=== PATIENT | male | born 1955 | race Caucasian/White ===

== ENCOUNTER 2016-04-27 12:33 | Emergency (ER) | payer OTHER ==
[~2016-04-27] VITALS: Ht 193 cm; Wt 102.3 kg
[~2016-04-27 12:33] MED LIST: ALBU8.5H2 INHALATION; AMOX-366 PO; ASPI-973 PO; CHLO120L TP; DIL4T PO; DULO60CA61 PO; FINA5TAB9 PO; INSLIS SUBQ; INSU100V7 SUBQ; KLO2T PO; METF1000 PO; METO25TA6 PO; PREG50CA PO; SERT100T9 PO; SIMV40TA5 PO; TAMS0.4C98 PO
[2016-04-27 12:36] VITALS: BP 142/87; PULSE 111; RESP 16; O2SAT 97
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
[2016-04-27] MEDS ORDERED: DOXY100C43 PO (13:18)
[2016-04-27] MEDS ORDERED: MUPI22OI2 TOP (13:18)
[2016-04-27] MEDS ORDERED: DIPH25CA6 PO (13:19)
== END 2016-04-27 13:30 | disposition home or self-care (01) ==
LOC: SED 12:33
DX: L08.89 Other specified local infections of the skin and subcutaneous tissue (principal); F13.230 Sedative, hypnotic or anxiolytic dependence with withdrawal, uncomplicated; L29.8 Other pruritus; E11.9 Type 2 diabetes mellitus without complications; I10 Essential (primary) hypertension; E78.5 Hyperlipidemia, unspecified; J44.9 Chronic obstructive pulmonary disease, unspecified; F17.210 Nicotine dependence, cigarettes, uncomplicated; Z79.82 Long term (current) use of aspirin; Z79.84 Long term (current) use of oral hypoglycemic drugs; Z88.1 Allergy status to other antibiotic agents; Z88.5 Allergy status to narcotic agent; Z88.8 Allergy status to other drugs, medicaments and biological substances; Z89.511 Acquired absence of right leg below knee; Z87.828 Personal history of other (healed) physical injury and trauma

== ENCOUNTER 2016-05-27 11:31 | Emergency (ER) | payer OTHER ==
[~2016-05-27 11:31] MED LIST changes: +DIPH25CA6 PO; +DOXY100C43 PO; +MUPI22OI2 TOP
[2016-05-27 11:45] VITALS: BP 130/76; PULSE 82; RESP 16; O2SAT 92
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
[2016-05-27] MEDS ORDERED: HYDROcodone-APAP 5-325 mg Tablet PO ONE (12:40)
--- NOTE | 2016-05-27 14:07 | DRSVH ---
PROCEDURE: X-RAY RIGHT HIP COMPLETE, MINIMUM TWO VIEWS ([id number]) INDICATIONS: trauma TECHNIQUE: 2 views of the hip were acquired. COMPARISON: [facility], CR, XR PELVIS W LATERAL HIP LT, 03/25/2015, 20:01. FINDINGS: Bones: Subtle cortical irregularity is present near the lesser trochanter raising the suspicion for a poorly characterized, minimally displaced fracture. No other fracture or dislocation. Soft tissues: No suspicious soft tissue calcifications or masses. IMPRESSION: Questionable intertrochanteric fracture. CT of the hip recommended if there is high clini antonio suspicion for occult fracture. Dictated by: Yumiko Escalona M.D. on 05/27/2016 at 14:03 Approved by: Yumiko Escalona M.D. on 05/27/2016 at 14:06
--- NOTE | 2016-05-27 14:52 | DRSVH ---
PROCEDURE: CT HIP RIGHT W/O CONTRAST ([id number]) INDICATIONS: possible fracture TECHNIQUE: Noncontrast 3 mm axial sections acquired through the bony pelvis. Additional 3 mm axial sections acq uired through the symptomatic hip joint, with coronal and sagittal reformats. COMPARISON: [facility], CT, PELVIS W/O CONTRAST, 06/16/2009, 14:11. [facility], L-SPINE W/O CONTRAST, 04/24/2014, 23:13. [facility], CR, XR PELVIS W LATERAL HIP RT, 09/18/2015, 8:44. [facility], CR, XR HIP 2VW RT, 05/27/2016, 13:27. FINDINGS: Image quality: Excellent. Bones: There is a minimally displaced fracture through the right acetabulum. No other fracture or dis location. The femoral head remains articulated with the acetabulum. Additionally, there is a peripher ally sclerotic, centrally lucent 3.9 x 4.4 cm lytic lesion within the acetabulum. The fracture transe cts this expansile lesion. This lesion is similar in size and appearance to the study dated 06/16/09. Soft tissues: No intramuscular hematoma. The bladder is thin walled. Visualized portions of the bowel are unremarkable. Vessels demonstrate normal course and caliber with mild arterial atherosclerosis. IMPRESSION: 1. Minimally displaced left acetabular fracture which transects an expansile bony lesion. Given the c hronic appearance of this lucent lesion (unchanged since 2009), this likely represents a benign proce ss such as fibrous dysplasia or aneurysmal bone cyst. These findings were discussed with Dr. Jaramillo at 2:49 PM on 05/27/16. Dictated by: Yumiko Escalona M.D. on 05/27/2016 at 14:42 Approved by: Yumiko Escalona M.D. on 05/27/2016 at 14:50
[2016-05-27] MEDS ORDERED: 0.9% Sodium Chloride 1,000 ML IV ONE (14:53)
[2016-05-27] MEDS ORDERED: Ondansetron 2 mg/mL 2 mL Inj IVPUSH PRN (14:55)
[2016-05-27] MEDS ORDERED: HYDROmorphone 0.5 mg/0.5 mL iSecure Syringe IVPUSH PRN (14:55)
[2016-05-27 16:02] VITALS: BP 130/76; PULSE 82; RESP 16; O2SAT 92
[2016-05-27 16:03] LABS: BASOPHILS % (AUTO) 0.3 % (0-3); EOSINOPHILS % (AUTO) 2.4 % (0-5); MONOCYTES % (AUTO) 8.7 % (4-12); Mean Corpuscular Hemoglobin 27.2 pg (27.0-35.0); Mean Corpuscular Volume 81.6 fL (81-100); NEUTROPHILS % (AUTO) 69.8 % (40-74); Platelet Count 211 bil/L (150-400)
== END 2016-05-27 16:05 | disposition short-term general hospital (02) ==
LOC: SED 11:31 → EDBD 11:31 → SED 16:05
DX: S32.401A Unspecified fracture of right acetabulum, initial encounter for closed fracture (principal); V00.818A Other accident with wheelchair (powered), initial encounter; Y92.9 Unspecified place or not applicable; Y93.89 Activity, other specified; Y99.8 Other external cause status; E11.40 Type 2 diabetes mellitus with diabetic neuropathy, unspecified; J44.9 Chronic obstructive pulmonary disease, unspecified; E78.5 Hyperlipidemia, unspecified; I10 Essential (primary) hypertension; F17.200 Nicotine dependence, unspecified, uncomplicated; Z89.511 Acquired absence of right leg below knee; Z99.3 Dependence on wheelchair; Z79.82 Long term (current) use of aspirin; Z79.84 Long term (current) use of oral hypoglycemic drugs; Z79.4 Long term (current) use of insulin; Z88.6 Allergy status to analgesic agent; Z88.8 Allergy status to other drugs, medicaments and biological substances; Z88.1 Allergy status to other antibiotic agents; Z88.5 Allergy status to narcotic agent
CPT/HCPCS: 36415; 73502; 73700; 80053; 85025; 96361; 96374; 96375; 99285; J1170; J2405; J7030

== ENCOUNTER 2016-06-30 02:35 | Emergency (ER) | payer OTHER ==
[~2016-06-30] VITALS: Ht 193 cm; Wt 97.7 kg
[2016-06-30 02:37] VITALS: BP 128/77; PULSE 81; RESP 16; O2SAT 97
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
[2016-06-30] MEDS ORDERED: HYDROmorphone 1 mg/mL Inj IM ONE (02:55)
[2016-06-30] MEDS ORDERED: HYDR4TAB PO (06:01)
[2016-06-30 06:37] VITALS: BP 127/71; PULSE 93; RESP 18; O2SAT 99
--- NOTE | 2016-06-30 09:40 | DRSVH ---
PROCEDURE: X-RAY PELVIS W/LAT HIP (RT) ([id number]) INDICATIONS: acetab fx 1 month ago, fell again on it TECHNIQUE: AP pelvis with lateral view(s) of the right hip(s). COMPARISON: [facility], CT, CT HIP RT WO CON, 05/27/2016, 14:20. FINDINGS: Bones: Minimally displaced fracture involving the right acetabulum seen on CT scan not visualized rad iographically. Bony alignment is stable. Peripherally sclerotic, central lucent lesion within the a cetabulum is unchanged. Soft tissues: The visualized bowel gas pattern is normal. No suspicious soft tissue calcifications. IMPRESSION: Right acetabular fracture seen on prior CT scan not well seen by plain film. No definite new acute bony abnormality seen. Dictated by: Thai Rueda [facility] Interpreted: Lidia Bahena MD on 06/30/2016 at 9:38 Transcribed by: KISHOR on 06/30/2016 at 9:40 Approved by: Lidia Bahena MD, PhD on 06/30/2016 at 17:01
== END 2016-06-30 06:38 | disposition home or self-care (01) ==
LOC: SED 02:35
DX: S32.401D Unspecified fracture of right acetabulum, subsequent encounter for fracture with routine healing (principal); W18.39XD Other fall on same level, subsequent encounter; Y93.89 Activity, other specified; Y92.009 Unspecified place in unspecified non-institutional (private) residence as the place of occurrence of the external cause; Y99.8 Other external cause status; J44.9 Chronic obstructive pulmonary disease, unspecified; I10 Essential (primary) hypertension; E11.40 Type 2 diabetes mellitus with diabetic neuropathy, unspecified; E78.5 Hyperlipidemia, unspecified; Z79.82 Long term (current) use of aspirin; Z79.4 Long term (current) use of insulin; Z79.84 Long term (current) use of oral hypoglycemic drugs; Z88.1 Allergy status to other antibiotic agents; Z88.5 Allergy status to narcotic agent; Z88.8 Allergy status to other drugs, medicaments and biological substances
CPT/HCPCS: 73501; 96372; 99284; J1170

== ENCOUNTER 2016-08-29 14:50 | Emergency (ER) | payer OTHER ==
[~2016-08-29] VITALS: Ht 193 cm; Wt 97.7 kg
[~2016-08-29 14:50] MED LIST changes: +HYDR4TAB PO
[2016-08-29 15:13] VITALS: BP 121/75; PULSE 93; RESP 15; O2SAT 96
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
[2016-08-29] MEDS ORDERED: AZIT250T4 PO (19:05)
[2016-08-29 19:46] VITALS: BP 128/74; PULSE 88; RESP 18; O2SAT 98
== END 2016-08-29 19:47 | disposition home or self-care (01) ==
LOC: SED 14:50
DX: J32.9 Chronic sinusitis, unspecified (principal); M25.551 Pain in right hip; W17.89XA Other fall from one level to another, initial encounter; Y92.9 Unspecified place or not applicable; Y93.89 Activity, other specified; Y99.8 Other external cause status; F11.20 Opioid dependence, uncomplicated; J44.9 Chronic obstructive pulmonary disease, unspecified; E11.40 Type 2 diabetes mellitus with diabetic neuropathy, unspecified; E78.5 Hyperlipidemia, unspecified; I10 Essential (primary) hypertension; F41.9 Anxiety disorder, unspecified; F17.200 Nicotine dependence, unspecified, uncomplicated; Z87.828 Personal history of other (healed) physical injury and trauma; Z86.19 Personal history of other infectious and parasitic diseases; Z89.511 Acquired absence of right leg below knee; Z79.4 Long term (current) use of insulin; Z79.84 Long term (current) use of oral hypoglycemic drugs; Z79.82 Long term (current) use of aspirin; Z88.6 Allergy status to analgesic agent; Z88.8 Allergy status to other drugs, medicaments and biological substances; Z88.1 Allergy status to other antibiotic agents; Z88.5 Allergy status to narcotic agent

== ENCOUNTER 2016-09-14 11:48 | Emergency (ER) | payer OTHER ==
[~2016-09-14 11:48] MED LIST changes: +AZIT250T4 PO
[2016-09-14 12:08] VITALS: BP 112/72; PULSE 84; RESP 16; O2SAT 93
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
[2016-09-14 13:33] LABS: BASOPHILS % (AUTO) 0.3 % (0-3); EOSINOPHILS % (AUTO) 1.9 % (0-5); MONOCYTES % (AUTO) 6.6 % (4-12); Mean Corpuscular Hemoglobin 28.3 pg (27.0-35.0); Mean Corpuscular Volume 85.2 fL (81-100); NEUTROPHILS % (AUTO) 65.6 % (40-74); Platelet Count 177 bil/L (150-400)
[2016-09-14 15:00] VITALS: BP 115/59
== END 2016-09-14 15:01 | disposition home or self-care (01) ==
LOC: EDBD 11:48 → SED 11:48
DX: E11.65 Type 2 diabetes mellitus with hyperglycemia (principal); J44.9 Chronic obstructive pulmonary disease, unspecified; E78.5 Hyperlipidemia, unspecified; I10 Essential (primary) hypertension; F17.200 Nicotine dependence, unspecified, uncomplicated; Z79.82 Long term (current) use of aspirin; Z79.84 Long term (current) use of oral hypoglycemic drugs; Z79.4 Long term (current) use of insulin; Z88.1 Allergy status to other antibiotic agents; Z88.5 Allergy status to narcotic agent; Z88.6 Allergy status to analgesic agent; Z88.8 Allergy status to other drugs, medicaments and biological substances

== ENCOUNTER 2016-09-15 12:25 | Emergency (ER) | payer OTHER ==
[~2016-09-15] VITALS: Ht 193 cm; Wt 86.4 kg
[2016-09-15 12:39] VITALS: BP 126/64; PULSE 77; O2SAT 95
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
--- NOTE | 2016-09-15 14:01 | DRSVH ---
PROCEDURE: CT CERVICAL SPINE WITHOUT CONTRAST ([id number]) INDICATIONS: ground-level fall, headache, cervical tenderness TECHNIQUE: Noncontrast 3 mm thick sections acquired from the skull base to the T4 level. Sagittal and coronal r eformats were then constructed. For radiation dose reduction, the following was used: automated exp osure control, adjustment of mA and/or kV according to patient size. COMPARISON: [facility], CT, CT CERVICAL SPINE WO CON, 09/20/2015, 13:59. FINDINGS: Image quality: Excellent. Bones: No fractures or dislocations. There is mild multilevel disc space narrowing. Mild degenerat ion is noted at the atlantoaxial joint. There is fluid opacification of the right mastoid air cells. Postsurgical changes are partially visualized in the facial bones. Visualized superior ribs are in tact. Soft tissues: Prevertebral soft tissues are normal in thickness. No paravertebral hematomas. No ap ical pneumothoraces. IMPRESSION: 1. No acute fracture or subluxation. 2. Fluid opacification of the right mastoid air cells suggesting mastoiditis. Dictated by: Kennedy Benitez M.D. on 09/15/2016 at 12:57 Approved by: Kennedy Benitez M.D. on 09/15/2016 at 13:00
--- NOTE | 2016-09-15 16:04 | NUR ---
ED PARK MAINTENANCE TECHNICIAN Note D/A: Pt medically cleared and discharged. PARK MAINTENANCE TECHNICIAN requested to arrange transportation home for Pt. P: PARK MAINTENANCE TECHNICIAN completed and faxed the [employer] Transportation request form. PARK MAINTENANCE TECHNICIAN spoke with Raul at [employer] and transportation via cab was arranged. PARK MAINTENANCE TECHNICIAN updated Pt's RN regarding the above. ZHENG Valenzuela, AAC
== END 2016-09-15 15:14 | disposition home or self-care (01) ==
LOC: EDBD 12:25 → SED 12:25
DX: S09.8XXA Other specified injuries of head, initial encounter (principal); R51 Headache; M54.2 Cervicalgia; M54.5 Low back pain; G89.29 Other chronic pain; V00.811A Fall from moving wheelchair (powered), initial encounter; Y93.89 Activity, other specified; Y92.008 Other place in unspecified non-institutional (private) residence as the place of occurrence of the external cause; Y99.8 Other external cause status; I10 Essential (primary) hypertension; E11.40 Type 2 diabetes mellitus with diabetic neuropathy, unspecified; E78.5 Hyperlipidemia, unspecified; F17.200 Nicotine dependence, unspecified, uncomplicated; Z79.899 Other long term (current) drug therapy; Z79.84 Long term (current) use of oral hypoglycemic drugs; Z79.82 Long term (current) use of aspirin; Z79.4 Long term (current) use of insulin; Z88.1 Allergy status to other antibiotic agents; Z88.5 Allergy status to narcotic agent; Z88.6 Allergy status to analgesic agent; Z88.8 Allergy status to other drugs, medicaments and biological substances

== ENCOUNTER 2016-09-29 02:46 | Emergency (ER) | payer OTHER ==
[~2016-09-29] VITALS: Ht 193 cm; Wt 81.8 kg
[2016-09-29 02:47] VITALS: BP 150/84; PULSE 64; RESP 18; O2SAT 95
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
[2016-09-29] MEDS ORDERED: oxyCODONE-Acetamin 5-325 mg Tablet PO ONE (02:55)
[2016-09-29 03:19] LABS: BASOPHILS % (AUTO) 0.4 % (0-3); EOSINOPHILS % (AUTO) 2.1 % (0-5); MONOCYTES % (AUTO) 5.3 % (4-12); Mean Corpuscular Hemoglobin 28.5 pg (27.0-35.0); NEUTROPHILS % (AUTO) 57.8 % (40-74); Platelet Count 177 bil/L (150-400)
[2016-09-29 06:10] VITALS: BP 147/80; PULSE 68; RESP 18; O2SAT 97
[2016-09-29] MEDS ORDERED: oxyCODONE-Acetamin 10-325 mg Tablet PO PRN (07:10)
[2016-09-29 10:00] VITALS: BP 116/61; PULSE 58; RESP 16; O2SAT 95
--- NOTE | 2016-09-29 16:53 | CONS ---
[address] [address] CONSULTATION REPORT PATIENT: BENITO ARITA : 1955 MR#: [id number] ADMIT: 09/29/2016 JOB ID: [id number] DATE OF SERVICE: 09/29/2016 IDENTIFICATION OF PATIENT: The patient is a 61-year-old male well known to the emergency department as well as a mental health unit with noted prior history of multiple interventions for treatment of depression, PTSD and chronic substance use. The patient reportedly was seen at the request of attending physician, Dr. Clayton due to concerns of suicidal ideation. CHIEF COMPLAINT: "I would be willing to go back to CD treatment, I know that I have been misusing my medicines again." HISTORY OF PRESENT ILLNESS: As stated above, the patient did meet with myself and openly identified that he would be willing to go back to a chemical dependency treatment. He reportedly has been followed in the community and recently there is notation of misuse of substances with interactions through [facility] emergency department. The patient reportedly had gone through a month's supply of Klonopin within two weeks and has a long-term history of substance use/abuse. The patient identified that he previously had gone through [facility] in the but has not returned other than attending local AA and NA group activities. He indicates that he currently attends four to five meetings per week. He reports that he does abuse his Klonopin and pain management. He reportedly is on doses of oxycodone 10/325 q. 6 hours, Klonopin 1 mg t.i.d. per report. He indicates that he has not drank alcohol since 1977. I have reviewed documentation with open identification that the patient has been on placements of Suboxone replacement therapy in the past. As well, he indicates that he was addicted to several substances and notes that he has fallen back into that pattern. He initially was quite somnolent, but was willing to interact with myself. He later requested to meet with myself after interactions with the social worker delinquency prevention. I discussed with the social worker delinquency prevention, recommendations for return to a chemical dependency treatment and do not see that the patient is a likely candidate to benefit from a mental health unit intervention. I do see that much of his presentation is related to his drug addiction, and the need for treatment is clear and relevant. This was discussed with Dr. Clayton as well. PAST MEDICAL HISTORY: Deferred to the ED physician team. PAST PSYCHIATRIC HISTORY: Substantial for previous psychiatric admissions through the mental health unit and previous chemical dependency treatment through [facility]. There is some question of psychiatric involvement of current and some reference that the patient has been trying to actually get in to see a psychiatrist, but due to lengthy waiting list has never followed through. SOCIAL HISTORY: Currently indicates that he lives in the home of his mother who is now . He admits to the above usage of substances. He denies any alcohol usage. TRAUMA HISTORY: Not reviewed. FAMILY HISTORY: Deferred. DEVELOPMENTAL HISTORY: Deferred. MENTAL STATUS EXAM: General appearance: The patient was quite somnolent throughout but was able to answer questions accordingly. He indicates that he has not experienced suicidal ideation recently, but indicated that he often will tell people that in order to get medications. He was very clear and reliable on this account. He denied any active hallucinations, delusions. He was alert, oriented to time and place. His attention and concentration are poor. Insight and judgment are poor. IMPRESSION: [place] I1. Polysubstance use disorder with benzodiazepines, opiate addiction, by history. 2. Mood disorder, not otherwise specified with probable substance-induced presentation. 3. Rule out malingering. [place] IICluster B personality features. [place] IIIDefer to the medical team. [place] IVStressors are noted for chronic substance use history, chronic mental health issues as related to his substance use patterns. [place] VGlobal assessment of functioning current 50. RECOMMENDATIONS: 1. To discharge if the patient is unwilling to complete chemical dependency treatment referrals. I discussed initially with the social worker delinquency prevention, and the patient was agreeable to undergo a chemical dependency assessment, however, later declined. This was discussed with Dr. Clayton as well. 2. Caution is to be expressed in the future about further prescriptions. I would not support utilization of addictive medications including benzodiazepines or pain management medications. The patient is certainly at too high a risk and likely to abuse all substances. 3. Recommendation is for continuation of pursuit of mental health interventions through local community based sectors including [facility], [facility], [facility] and the [facility].
== END 2016-09-29 13:02 | disposition left against medical advice (07) ==
LOC: SED 02:46
DX: F32.0 Major depressive disorder, single episode, mild (principal); R45.851 Suicidal ideations; F19.10 Other psychoactive substance abuse, uncomplicated; I10 Essential (primary) hypertension; E11.43 Type 2 diabetes mellitus with diabetic autonomic (poly)neuropathy; E03.9 Hypothyroidism, unspecified; F17.200 Nicotine dependence, unspecified, uncomplicated; F43.10 Post-traumatic stress disorder, unspecified; Z88.1 Allergy status to other antibiotic agents; Z88.5 Allergy status to narcotic agent; Z88.6 Allergy status to analgesic agent; Z79.84 Long term (current) use of oral hypoglycemic drugs; Z79.82 Long term (current) use of aspirin; Z79.899 Other long term (current) drug therapy

== ENCOUNTER 2016-11-11 10:18 | Inpatient (IN) | payer MEDICAID, OTHER ==
[~2016-11-11] VITALS: Ht 190.5 cm; Wt 81.8 kg
[2016-11-11 10:39] VITALS: BP 108/59; PULSE 64; RESP 20; O2SAT 94
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
[2016-11-11 11:45] VITALS: BP 99/53; PULSE 60; RESP 24; O2SAT 92
[2016-11-11 12:52] VITALS: BP 106/57; PULSE 56; RESP 24; O2SAT 95
[2016-11-11 18:13] VITALS: BP 115/70; PULSE 54; RESP 20
[2016-11-11 19:38] LABS: BASOPHILS % (AUTO) 0.2 % (0-3); EOSINOPHILS % (AUTO) 1.2 % (0-5); MONOCYTES % (AUTO) 5.7 % (4-12); Mean Corpuscular Volume 85.8 fL (81-100); NEUTROPHILS % (AUTO) 72.6 % (40-74); Platelet Count 202 bil/L (150-400)
[2016-11-11] MEDS ORDERED: Insulin Human REGular-Omnicell 100 Unit/mL SUBQ ONE (20:45)
[2016-11-11] MEDS ORDERED: 0.9% Sodium Chloride 1,000 ML IV ONE (20:45)
[2016-11-11] MEDS ORDERED: oxyCODONE-Acetamin 5-325 mg Tablet PO ONE (20:45)
[2016-11-12] MEDS ORDERED: oxyCODONE-Acetamin 10-325 mg Tablet PO ONE ×2 (02:25→09:10)
[2016-11-12 05:46] VITALS: BP 136/79; PULSE 78; RESP 16; O2SAT 95
[2016-11-12] MEDS ORDERED: Insulin Human REGular-Omnicell 100 Unit/mL SUBQ ONE ×2 (07:15→11:50)
[2016-11-12] MEDS ORDERED: (U-500) Insulin Regluar, Human 500 Unit/mL Syringe SUBQ STA ×2 (08:50→11:23)
[2016-11-12 12:29] VITALS: BP 117/72; PULSE 71; RESP 21; O2SAT 96
[2016-11-12] MEDS ORDERED: KLO1T PO (18:05)
[2016-11-12] MEDS ORDERED: OXYC-407 PO (18:06)
[2016-11-12] MEDS ORDERED: TRAZ-115 PO (18:07)
[2016-11-12] MEDS ORDERED: Glucose 40% Oral Gel 15 Gm Tube PO PRN (18:20)
[2016-11-12] MEDS: DULoxetine 30 mg DR Capsule PO SCH (18:37)
[2016-11-12 18:39] VITALS: BP 112/68; PULSE 56; RESP 18; O2SAT 94
[2016-11-12] MEDS ORDERED: oxyCODONE-Acetamin 5-325 mg Tablet PO ONE (19:15)
[2016-11-12] MEDS: Insulin Human REGular-Omnicell 100 Unit/mL SUBQ SCH (19:21)
[2016-11-13 05:00] VITALS: BP 109/60; PULSE 82; RESP 16; O2SAT 97
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
[2016-11-13] MEDS: oxyCODONE-Acetamin 5-325 mg Tablet PO SCH ×3 (06:55→22:26)
[2016-11-13] MEDS: DULoxetine 30 mg DR Capsule PO SCH (08:30)
[2016-11-13] MEDS: Insulin Human REGular-Omnicell 100 Unit/mL SUBQ SCH (09:47)
[2016-11-13] MEDS ORDERED: Insulin LISPRO 300 Unit/3 mL Inj SUBQ ONE (10:15)
[2016-11-13] MEDS: Insulin GLARgine 100 Unit/mL Syringe SUBQ SCH ×2 (10:51→22:26)
[2016-11-13 17:45] VITALS: BP 115/63; PULSE 77; RESP 18; O2SAT 94
[2016-11-13 22:30] VITALS: BP 120/74; PULSE 71; RESP 14; O2SAT 94
--- NOTE | 2016-11-13 22:44 | PCM.PNPSY ---
Subjective Date of Service Nov 13, 2016 Subjective Patient frustrated with being in the emergency department. Patient denies intent to harm self or others and states would return home. Patient also aware of reported restraining order and later acknowledges restraining order and is unsure what what he would do. Patient called mother who reportedly hung up on him. Patient attempting to get larger doses of opiates and benzos but he himself acknowledges that he did not notice much difference between low and high dose benzodiazepines. Sleep: decreased due to noise Appetite: good Suicidal and homicidal ideation: denies Auditory hallucinations: denies Visual hallucinations: denies Other Psychotic Symptoms: NA Anxiety/Depression: increased due to concerns about being abandoned by family. Current Medications Current Medications Clonazepam 1 mg DAILY PO Last administered on 11/13/16 09:13; Admin Dose 1 MG; Start 11/13/16 at 08:30; Stop 11/13/16 at 10:59; Status DC Clonazepam 1 mg QID PRN PO Last administered on 11/13/16 00:32; Admin Dose 1 MG; Start 11/12/16 at 18:00; Stop 11/13/16 at 10:59; Status DC Clonazepam 1 mg TID PO Last administered on 11/13/16 22:26; Admin Dose 1 MG; Start 11/13/16 at 14:30 Clonazepam 2 mg ONCE ONCE PO Last administered on 11/12/16 02:35; Admin Dose 2 MG; Start 11/12/16 at 02:25; Stop 11/12/16 at 02:26; Status DC Clonazepam 2 mg ONCE ONCE PO Last administered on 11/12/16 07:25; Admin Dose 2 MG; Start 11/12/16 at 07:10; Stop 11/12/16 at 07:11; Status DC Clonazepam 2 mg ONCE ONCE PO Last administered on 11/12/16 14:12; Admin Dose 2 MG; Start 11/12/16 at 13:55; Stop 11/13/16 at 10:59; Status DC Duloxetine HCl 30 mg DAILY PO Last administered on 11/13/16 08:30; Admin Dose 30 MG; Start 11/12/16 at 17:58 Insulin Glargine 95 unit BID SUBQ Last administered on 11/13/16 22:26; Admin Dose 95 UNIT; Start 11/13/16 at 10:15 Insulin Human Lispro 30 unit ONCE ONCE SUBQ Last administered on 11/13/16 11: 00; Admin Dose 30 UNIT; Start 11/13/16 at 10:15; Stop 11/13/16 at 10:16; Status DC Insulin Human Regular 1-8 UNITS ACHS SUBQ Last administered on 11/12/16 19:21; Admin Dose 8 UNIT; Start 11/12/16 at 19:19 Insulin Human Regular 10 unit ONCE ONCE SUBQ Last administered on 11/12/16 07: 25; Admin Dose 10 UNIT; Start 11/12/16 at 07:15; Stop 11/12/16 at 07:16; Status DC Insulin Human Regular 10 unit ONCE ONCE SUBQ Last administered on 11/12/16 11: 51; Admin Dose 10 UNIT; Start 11/12/16 at 11:50; Stop 11/12/16 at 11:51; Status DC Insulin Human Regular 10 unit ONCE STAT SUBQ Last administered on 11/12/16 09: 10; Admin Dose 10 UNIT; Start 11/12/16 at 08:50; Stop 11/12/16 at 08:51; Status DC Metformin HCl 1,000 mg BIDWM PO Last administered on 11/13/16 08:00; Admin Dose 1,000 MG; Start 11/12/16 at 18:11 Nicotine 1 patch ONCE ONCE TOPICAL Last administered on 11/12/16 05:57; Admin Dose 1 PATCH; Start 11/12/16 at 05:50; Stop 11/12/16 at 05:52; Status DC Nicotine 1 patch ONCE ONCE TOPICAL Last administered on 11/13/16 11:05; Admin Dose 1 PATCH; Start 11/13/16 at 10:45; Stop 11/13/16 at 10:46; Status DC Oxycodone/ Acetaminophen 1 tab ONCE ONCE PO Last administered on 11/12/16 02: 31; Admin Dose 1 TAB; Start 11/12/16 at 02:25; Stop 11/12/16 at 02:26; Status DC Oxycodone/ Acetaminophen 1 tab ONCE ONCE PO Last administered on 11/12/16 09: 15; Admin Dose 1 TAB; Start 11/12/16 at 09:10; Stop 11/12/16 at 09:11; Status DC Oxycodone/ Acetaminophen 1 tab ONCE ONCE PO Last administered on 11/12/16 19: 15; Admin Dose 1 TAB; Start 11/12/16 at 19:15; Stop 11/12/16 at 19:16; Status DC Oxycodone/ Acetaminophen 1 tab Q6H PO Last administered on 11/13/16 22:26; Admin Dose 1 TAB; Start 11/13/16 at 06:55 Pregabalin 100 mg TID PO Last administered on 11/13/16 22:26; Admin Dose 100 MG ; Start 11/12/16 at 17:59 Trazodone HCl 50 mg HS PRN PO Last administered on 11/13/16 22:26; Admin Dose 50 MG; Start 11/12/16 at 18:00 Mental Status Exam Vital Signs Vital Signs Date Time Temp Pulse Resp B/P Pulse Ox O2 Delivery O2 Flow Rate FiO2 11/13/16 22:30 71 14 120/74 94 Room Air 11/13/16 17:45 36.3 77 18 115/63 94 Room Air Appearance: Unkept Attitude: Pleasant, Cooperative Behavior: No unusual behavior Affect: Well Modulated/Appropriate Mood: Dysthymic, Anxious Thought Process/Associations: Logical/Sequential, Goal Directed Speech Production: Normal Speech Rate: Normal Speech Articulation: Normal Thought Content: Perseveration Danger to Self/Suicidal Ideati: None Danger to Others: None Hallucinations: Auditory (Denies), Visual (Denies) Consciousness: Alert Orientation: Person, Place, Date, Situation Memory: Grossly Intact Estimate Intellectual Function: Average Attention/Concentration & Cogn: Grossly Intact Insight: Good Judgement: Poor Result Diagram: 11/11/16192411/11/161924 Mental Health Plan The patient is a 61-year-old male with a history of mood and anxiety disorder, polysubstance use and opiate dependence, and antisocial personality disorder with multiple chronic medical issues. The patient has been detained due to his threats to harm himself and others and has extremely limited coping skills. The patient has not been taking his medications as prescribed and has only been taking some of his medical medications, primarily his opiates, benzodiazepines, and some of his diabetic medications. The patient was agreeable to restart Duloxetine 30mg and has noted no side effects. The patient reported surprise that clonazepam 1mg three times a day appeared to be addressing his anxiety symptoms. The [facility] is currently full and there are no other beds. The patient is currently on a single bed cert through the emergency department and will be seen by a psychiatrist on a daily basis. [place] AXIS I: 1. Mood disorder, unspecified. 2. Anxiety disorder, unspecified. 3. Polysubstance use with a history of opiate dependence, marijuana use disorder. AXIS II: Antisocial personality disorder. AXIS III: See past medical history. AXIS IV: 1. Chronic pain. 2. Poor coping skills. 3. Social isolation. 4. Over use of opiate pain medication and benzodiazepines. AXIS V: GAF of 30-35. Treatments 1. The patient has been detained on a single bed certification and is currently not appropriate for of release to the community. 2. The patient will be continued on clonazepam 1 mg three times a day as this appears effective for his anxiety. 3. Duloxetine 30 mg p.o. daily will be continued. 4. The hospitalist or ER physician will address his pain medication needs and other medical medication needs as appropriate. 5. Discussed with the 7th grade social studies teacher discussing with the family possible reconciliation and dropping of a no contact order if this is felt appropriate as this behavior is fairly chronic. 6. Social work will continue to work on finding alternate placement, however should a bed open at the [facility] before that occurs he will be transferred to the [facility] with court scheduled sometime by next Monday. 7. Recommend continuing clonazepam 1mg po tid and gradually taper over next few months by 0.5mg every 2 weeks. 8. Patient would likely benefit from CBT, went through sample problem on worksheet and patient encouraged to fill out form. 9. Estimated length of stay is 5-7 days. Rizwan Garcia MD Nov 13, 2016 22:44
[2016-11-14] MEDS: oxyCODONE-Acetamin 5-325 mg Tablet PO SCH ×3 (03:25→16:00)
[2016-11-14 06:12] VITALS: BP 127/71; PULSE 78; RESP 12; O2SAT 95
[2016-11-14] MEDS: DULoxetine 30 mg DR Capsule PO SCH (09:47)
[2016-11-14] MEDS: Insulin GLARgine 100 Unit/mL Syringe SUBQ SCH ×2 (09:47→21:29)
[2016-11-14 12:32] VITALS: BP 108/69; PULSE 66; RESP 14; O2SAT 95
[2016-11-14] MEDS: Insulin Human REGular-Omnicell 100 Unit/mL SUBQ SCH (13:50)
[2016-11-14] MEDS ORDERED: Magnesium Hydroxide 10 mL Oral Concentration PO PRN (19:55)
[2016-11-14] MEDS ORDERED: Alum-Mag Hydrox-Simeth 30 mL Suspension PO PRN (19:55)
[2016-11-14 20:17] VITALS: BP 133/84; PULSE 71; RESP 16
--- NOTE | 2016-11-14 22:56 | PCM.PNPSY ---
Subjective Date of Service Nov 14, 2016 Subjective Patient frustrated with being in the emergency department, not receiving medication when he wants them, food when he requests, etc. Patient denies intent to harm self or others and states would return home whether there is a restraining order or not. Patient stated he denies suicidal ideation, "I'm saving that for ." Regarding homicidal ideation towards his brother he stated, "Only in self-defense." When asked specifically about plans harm him, he stated, "Like cutting his break lines, yeah, I've thought about it." Reports benzodiazepine "not enough" but denies any specific symptoms. Discussed switching to diazepam 5mg tid, and patient agreeable. Reports unsure if any change with mood with duloxetine. Sleep: poor in ER Appetite: not getting enough food Suicidal and homicidal ideation: as above Auditory hallucinations: denies Visual hallucinations: denies Other Psychotic Symptoms: NA Anxiety/Depression: increased due to concerns about being abandoned by family. Current Medications Current Medications Clonazepam 1 mg DAILY PO Last administered on 11/13/16 09:13; Admin Dose 1 MG; Start 11/13/16 at 08:30; Stop 11/13/16 at 10:59; Status DC Clonazepam 1 mg TID PO Last administered on 11/14/16 16:00; Admin Dose 1 MG; Start 11/13/16 at 14:30; Stop 11/14/16 at 19:45; Status DC Diazepam 5 mg TID PO Last administered on 11/14/16 20:37; Admin Dose 5 MG; Start 11/14/16 at 20:30 Insulin Glargine 95 unit BID SUBQ Last administered on 11/14/16 21:29; Admin Dose 95 UNIT; Start 11/13/16 at 10:15 Insulin Human Lispro 30 unit ONCE ONCE SUBQ Last administered on 11/13/16 11: 00; Admin Dose 30 UNIT; Start 11/13/16 at 10:15; Stop 11/13/16 at 10:16; Status DC Nicotine 1 patch ONCE ONCE TOPICAL Last administered on 11/13/16 11:05; Admin Dose 1 PATCH; Start 11/13/16 at 10:45; Stop 11/13/16 at 10:46; Status DC Oxycodone/ Acetaminophen 1 tab Q6H PO Last administered on 7/24/17at 16:00; Admin Dose 1 TAB; Start 11/13/16 at 06:55 Mental Status Exam Vital Signs Vital Signs Date Time Temp Pulse Resp B/P Pulse Ox O2 Delivery O2 Flow Rate FiO2 11/14/16 20:17 36.3 71 16 133/84 Appearance: Unkept Attitude: Pleasant, Cooperative Behavior: No unusual behavior Affect: Well Modulated/Appropriate Mood: Dysthymic, Anxious Thought Process/Associations: Logical/Sequential, Goal Directed Speech Production: Normal Speech Rate: Normal Speech Articulation: Normal Thought Content: Perseveration Danger to Self/Suicidal Ideati: None Danger to Others: Thoughts/Plans of Harming Others (Not spontaneously reported) , Identified target (Brother) Hallucinations: Auditory (Denies), Visual (Denies) Consciousness: Alert Orientation: Person, Place, Date, Situation Memory: Grossly Intact Estimate Intellectual Function: Average Attention/Concentration & Cogn: Grossly Intact Insight: Good Judgement: Poor Result Diagram: 11/11/16192411/11/161924 Mental Health Plan The patient is a 61-year-old male with a history of mood and anxiety disorder, polysubstance use and opiate dependence, and antisocial personality disorder with multiple chronic medical issues. The patient has been detained due to his threats to harm himself and others and has extremely limited coping skills. The patient has not been taking his medications as prescribed and has only been taking some of his medical medications, primarily his opiates, benzodiazepines, and some of his diabetic medications. The patient was agreeable to restart Duloxetine 30mg and has noted no side effects. The patient requests changing to diazepam 5mg tid. The patient will be transferred to the [facility] when a bed is available. [place] AXIS I: 1. Mood disorder, unspecified. 2. Anxiety disorder, unspecified. 3. Polysubstance use with a history of opiate dependence, marijuana use disorder. AXIS II: Antisocial personality disorder. AXIS III: See past medical history. AXIS IV: 1. Chronic pain. 2. Poor coping skills. 3. Social isolation. 4. Over use of opiate pain medication and benzodiazepines. AXIS V: GAF of 30-35. Treatments 1. The patient is admitted to the inpatient unit and will be provided a safe and secure environment. 2. The patient is denying current active suicidality and is not in need of a one-to-one at this time. 3. The patient is encouraged to participate with group and milieu activities. 4. The patient will be seen by the treatment team on a daily basis to assess symptoms, side effects and response to treatment. 5. The patient will be switched to diazepam 5mg po tid. 6. Duloxetine 30 mg p.o. daily will be continued. 7. The hospitalist will address his pain medication needs and other medical medication needs as appropriate. 8. Patient would likely benefit from CBT, went through sample problem on worksheet and patient encouraged to fill out form. 9. Estimated length of stay is 5-7 days. Rizwan Garcia MD Nov 14, 2016 22:56 worksheet and patient encouraged to fill out form. 9. Estimated length of stay is 5-7 days. Rizwan Garcia MD Nov 14, 2016 22:56
[2016-11-14] MEDS ORDERED: Benzocaine-Menthol Lozenge 2/Pkg PO PRN (23:00)
[2016-11-14] MEDS: Insulin Human REGular 300 Unit/3 mL Inj SUBQ SCH (23:33)
[2016-11-15] MEDS: oxyCODONE-Acetamin 5-325 mg Tablet PO SCH ×5 (01:47→21:38)
[2016-11-15] MEDS: Insulin Human REGular 300 Unit/3 mL Inj SUBQ SCH ×4 (09:04→21:53)
[2016-11-15] MEDS: Insulin GLARgine 100 Unit/mL Syringe SUBQ SCH ×2 (09:05→21:53)
[2016-11-15] MEDS: DULoxetine 30 mg DR Capsule PO SCH (09:08)
--- NOTE | 2016-11-15 10:49 | PCM.PNPSY ---
Subjective Date of Service Nov 15, 2016 Subjective Patient reports good sleep compared to the ED, though anxious (/) this morning because house staff woke him at 5:30am for medication. Anxiety has since subsided. He reports significant worries about his personal belongings, the possibility of homelessness, and brother controlling his life. He admits feeling safe while in the hospital which has reduced his anxiety. 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 He additional admits homicidal ideation, possibly cutting his brother car break lines though he is unsure of any actual intent unless provoked. Reports he cannot say whether duloxetine 30mg (or for that matter 120mg in the past) has helped his mood. Patient tearful, cries almost nightly as he misses his father. Tolerates Valium 5mg TID, wishes he can have 10mg TID. Also wants to adjust PRN pain meds. Sleep: 7 hours Appetite: okay Suicidal and homicidal ideation: as mentioned above Auditory hallucinations:denies Visual hallucinations: denies Other Psychotic Symptoms: none Anxiety: moderate Depression: severe-chronic Current Medications Current Medications Clonazepam 1 mg TID PO Last administered on 11/14/16 16:00; Admin Dose 1 MG; Start 11/13/16 at 14:30; Stop 11/14/16 at 19:45; Status DC Diazepam 5 mg TID PO Last administered on 11/15/16 07:57; Admin Dose 5 MG; Start 11/14/16 at 20:30 Duloxetine 30mg PO TID Insulin Latus 95units BID Insulin Human Regular 1-8 UNITS ACHS SUBQ Last administered on 11/15/16 09:04; Admin Dose 1 UNIT; Start 11/14/16 at 22:00 Metformin 1000mg PO BID Oxycodone-APAP 5-325mg Q6H Pregabalin 100mg PO TID Trazodone 50mg PO HS Ambien 5mg PO HS Nicotine 1 patch DAILY TOPICAL Last administered on 11/15/16 09:08; Admin Dose 1 PATCH; Start 11/15/16 at 08:30 Nicotine 1 patch ONCE ONCE TOPICAL Last administered on 11/13/16 11:05; Admin Dose 1 PATCH; Start 11/13/16 at 10:45; Stop 11/13/16 at 10:46; Status DC Mental Status Exam Appearance: Unkept Attitude: Pleasant, Cooperative Behavior: No unusual behavior Affect: Well Modulated/Appropriate Mood: Dysthymic, Anxious Thought Process/Associations: Logical/Sequential, Goal Directed Speech Production: Normal Speech Rate: Normal Speech Articulation: Normal Thought Content: Perseveration Danger to Self/Suicidal Ideati: None Danger to Others: Thoughts/Plans of Harming Others (Not spontaneously reported) , Identified target (Brother) Hallucinations: Auditory (Denies), Visual (Denies) Consciousness: Alert Orientation: Person, Place, Date, Situation Memory: Grossly Intact Estimate Intellectual Function: Average Attention/Concentration & Cogn: Grossly Intact Insight: Good Judgement: Poor Result Diagram: 11/11/16192411/11/161924 Mental Health Plan The patient is a 61-year-old male with a history of mood and anxiety disorder, polysubstance use and opiate dependence, and antisocial personality disorder with multiple chronic medical issues. The patient has been detained due to his threats to harm himself and others and has extremely limited coping skills. The patient has not been taking his medications as prescribed and has only been taking some of his medical medications, primarily his opiates, benzodiazepines, and some of his diabetic medications. Patient continues to agree to take duloxetine 30mg HS, but is indifferent to increasing back to previous dose 60mg , no noted side effects. Anxiety decreased with safe environment, no noticeable different with the addition of diazepam 5mg (no objective signs of anxiety noted ). Patient has chronic pain, request Percocet 5-325mg be given at specified time. Blood sugar 150's overnight. [place] AXIS I: 1. Mood disorder, unspecified. 2. Anxiety disorder, unspecified. 3. Polysubstance use with a history of opiate dependence, marijuana use disorder. AXIS II: Antisocial personality disorder. AXIS III: See past medical history. AXIS IV: 1. Chronic pain. 2. Poor coping skills. 3. Social isolation. 4. Over use of opiate pain medication and benzodiazepines. AXIS V: GAF of 30-35. Treatments 1. The patient is admitted to the inpatient unit and will be provided a safe and secure environment. 2. The patient is denying current active suicidality and is not in need of a one-to-one at this time. 3. The patient is encouraged to participate with group and milieu activities. 4. The patient will be seen by the treatment team on a daily basis to assess symptoms, side effects and response to treatment. 5. The patient will be switched to diazepam 5mg po tid. 6. Duloxetine 30 mg p.o. daily will be continued. 7. Continue current Lantus, sliding scale, and metformin. Ordered A1C. 8. Reschedule Percocet 5-325mg to 6am, 11am, 4pm, and 9pm 10. Patient would likely benefit from CBT, went through sample problem on worksheet and patient encouraged to fill out form. 11. Social work to work with patient to contact [facility] to find a home 12. Encourage patient to request a continuance as estimated length of stay > 7days. Attending Statement The patient was seen and examined together with Dr. Araujo on 11/15/16 and I have added additional information to the note above. Osito Araujo DO Nov 15, 2016 10:49 Rizwan Garcia MD Nov 15, 2016 22:41
[2016-11-15 15:31] VITALS: BP 127/97; PULSE 74; RESP 18
[2016-11-16] MEDS: oxyCODONE-Acetamin 5-325 mg Tablet PO SCH ×4 (05:15→21:47)
[2016-11-16] MEDS: DULoxetine 30 mg DR Capsule PO SCH (07:28)
[2016-11-16] MEDS: Insulin GLARgine 100 Unit/mL Syringe SUBQ SCH ×2 (08:28→22:18)
[2016-11-16] MEDS: Insulin Human REGular 300 Unit/3 mL Inj SUBQ SCH (08:28)
[2016-11-16] MEDS ORDERED: Glucose 40% Oral Gel 15 Gm Tube PO PRN (08:50)
[2016-11-16 11:09] VITALS: BP 111/75; PULSE 87; RESP 19
[2016-11-16] MEDS: Insulin LISPRO 300 Unit/3 mL Inj SUBQ SCH ×3 (13:00→21:54)
--- NOTE | 2016-11-16 14:27 | PCM.PNPSY ---
Subjective Date of Service Nov 16, 2016 Subjective Patient is 61yom with history of anxiety/depression and chronic suicidal ideation presented with suicidal and homicidal thoughts after eviction from brother. Today, patient presents with "max-out anxiety", decrease sleep due to frequent glucose check. Anxiety worst in the morning. He follows a felipe's schedule, early riser 5:30am, awake with nervous sweats, palpitation. He would like morning-diazepam given in the early rather than 8am. Additionally, patient again request to increase valium 10mg. Agreeable to a change in schedule diazepam time however. Patient reports verbal threats against him by another patient "Danial" after a heated argument yesterday. Patient dismissive of threat and does not feel threatened. He verbalize in agreements to report any further threats to staff. Sleep: 5.75 Appetite: good, denies late night snacks, blood sugar 220's Suicidal and homicidal ideation: Vague suicidal ideation, no plans however. Likewise vague homicidal ideation of his brother. Auditory hallucinations: Denies Visual hallucinations: Denies Other Psychotic Symptoms: See above Anxiety: 01/31 Depression: Chronic, no change from baseline Current Medications Current Medications Diazepam 5 mg TID PO Last administered on 11/16/16 07:28; Admin Dose 5 MG; Start 11/14/16 at 20:30; Stop 11/16/16 at 13:36; Status DC Hydroxyzine Pamoate 50 mg Q6H PRN PO Last administered on 11/16/16 05:14; Admin Dose 50 MG; Start 11/14/16 at 19:55 Insulin Human Lispro Nutritional Dose to be given pr... [facility] SUBQ Last administered on 11/16/16 13:00; Admin Dose 7 UNIT; Start 11/16/16 at 12:00 Insulin Human Regular 1-8 UNITS ACHS SUBQ Last administered on 11/16/16 08:28; Admin Dose 3 UNIT; Start 11/14/16 at 22:00; Stop 11/16/16 at 08:49; Status DC Nicotine 1 patch DAILY TOPICAL Last administered on 11/16/16 07:27; Admin Dose 1 PATCH; Start 11/15/16 at 08:30 Oxycodone/ Acetaminophen 1 tab 06,11,16,21 PO Last administered on 11/16/16 10: 56; Admin Dose 1 TAB; Start 11/15/16 at 11:15 Mental Status Exam Vital Signs Vital Signs Date Time Temp Pulse Resp B/P Pulse Ox O2 Delivery O2 Flow Rate FiO2 11/16/16 11:09 36.9 87 19 111/75 Appearance: Unkept Attitude: Pleasant, Cooperative Behavior: No unusual behavior Affect: Well Modulated/Appropriate Mood: Dysthymic, Anxious Thought Process/Associations: Logical/Sequential, Goal Directed Speech Production: Normal Speech Rate: Normal Speech Articulation: Normal Thought Content: Perseveration Danger to Self/Suicidal Ideati: None Danger to Others: Thoughts/Plans of Harming Others (Not spontaneously reported) , Identified target (Brother) Hallucinations: Auditory (Denies), Visual (Denies) Consciousness: Alert Orientation: Person, Place, Date, Situation Memory: Grossly Intact Estimate Intellectual Function: Average Attention/Concentration & Cogn: Grossly Intact Insight: Good Judgement: Poor Result Diagram: 11/11/16192411/11/161924 Mental Health Plan The patient is a 61-year-old male with a history of mood and anxiety disorder, polysubstance use and opiate dependence, and antisocial personality disorder with multiple chronic medical issues. The patient has been detained due to his threats to harm himself and others and has extremely limited coping skills. The patient has not been taking his medications as prescribed and has only been taking some of his medical medications, primarily his opiates, benzodiazepines, and some of his diabetic medications. Patient continues to agree taking duloxetine 30mg HS, indifference to increasing back to previous dose 60mg, no noted side effects. Anxiety decreased with safe environment, no noticeable different with the addition of diazepam 5mg, most anxious in the a.m. [place] AXIS I: 1. Mood disorder, unspecified. 2. Anxiety disorder, unspecified. 3. Polysubstance use with a history of opiate dependence, marijuana use disorder. AXIS II: Antisocial personality disorder. AXIS III: See past medical history. Uncontrolled diabetes type II, A1c 11.2 AXIS IV: 1. Chronic pain. 2. Poor coping skills. 3. Social isolation. 4. Over use of opiate pain medication and benzodiazepines. AXIS V: GAF of 30-35. Treatments 1. The patient is admitted to the inpatient unit and will be provided a safe and secure environment. 2. The patient is denying current active suicidality and is not in need of a one-to-one at this time. 3. The patient is encouraged to participate with group and milieu activities. 4. The patient will be seen by the treatment team on a daily basis to assess symptoms, side effects and response to treatment. 5. The patient will be switched to diazepam 5mg po tid. 6. Duloxetine 30 mg p.o. daily will be continued. 7. Continue current Lantus, high sliding scale, and metformin. 8. Scheduled Percocet 5-325mg to 6am, 11am, 4pm, and 9pm 9. Schedule Valium 5 mg 6 AM, 11 AM, 9 PM since patient is most anxious in the morning. 10. Patient would likely benefit from CBT, went through sample problem on worksheet and patient encouraged to fill out form. 11. Social work to work with patient to contact [facility] to find a home 12. Encourage patient to request a continuance as estimated length of stay > 7days. Attending Statement The patient was seen and examined together with Dr. Araujo on 11/16/16 and I have added additional information to the note above. Osito Araujo DO Nov 16, 2016 14:26 Rizwan Garcia MD Nov 16, 2016 22:52
[2016-11-17] MEDS: oxyCODONE-Acetamin 5-325 mg Tablet PO SCH ×4 (06:04→21:54)
[2016-11-17] MEDS: Insulin LISPRO 300 Unit/3 mL Inj SUBQ SCH ×4 (08:00→21:56)
[2016-11-17] MEDS: Insulin GLARgine 100 Unit/mL Syringe SUBQ SCH ×2 (08:35→20:30)
[2016-11-17] MEDS: DULoxetine 30 mg DR Capsule PO SCH (08:36)
--- NOTE | 2016-11-17 10:45 | PCM.PNPSY ---
Subjective Date of Service Nov 17, 2016 Subjective Today, patient reports significant anxiety "ramped up", depressed, and tearful. He is preoccupied secondary to unknown status of his belongings. His brother was to relocate his belongings to a storage space somewhere in [place] today. Pt reports significant sadness due to his homelessness status and without any financial support. He states" this will be done of me when I leave". He expresses suicidal ideation, however no definitive plans. He agrees not to hurt himself on this admission. Pt requesting for group meeting with mother and brother to determine the status of his inheritance and whether they are abandoning him. Scheduled Valium and opioids has worked well. He however states that he has increasing tolerance for opioids and is on diazepam, thus requiring higher doses of both. Patient reports lower back pain. Sleep: 6 hour, use trazodone 50 mg and Vistaril 50 mg at 1600 hrs. and 2200 hrs. Appetite: Good appetite Suicidal and homicidal ideation: No changes, headache suicidal and homicidal ideation, no definitive plan Auditory hallucinations: Denies Visual hallucinations: Denies Other Psychotic Symptoms: See above Anxiety: 01/31 Depression: Chronic, no change from baseline Current Medications Current Medications Diazepam 5 mg 06,11,21 PO Last administered on 11/17/16 06:20; Admin Dose 5 MG ; Start 11/16/16 at 21:00 Diazepam 5 mg STK-MED ONCE .ROUTE Last administered on 11/16/16 15:08; Admin Dose 5 MG; Start 11/16/16 at 15:02; Stop 11/16/16 at 15:03; Status DC Insulin Human Lispro Nutritional Dose to be given pr... [facility] SUBQ Last administered on 11/16/16 17:23; Admin Dose 6,478,605 UNIT; Start 11/16/16 at 12 :00 Oxycodone/ Acetaminophen 1 tab 06,11,16,21 PO Last administered on 11/17/16 06: 04; Admin Dose 1 TAB; Start 11/15/16 at 11:15 Mental Status Exam Appearance: Unkept Attitude: Pleasant, Cooperative Behavior: No unusual behavior, Tearful Affect: Well Modulated/Appropriate Mood: Dysthymic, Anxious Thought Process/Associations: Logical/Sequential, Goal Directed Speech Production: Normal Speech Rate: Normal Speech Articulation: Normal Thought Content: Perseveration Danger to Self/Suicidal Ideati: None Danger to Others: Thoughts/Plans of Harming Others (Not spontaneously reported) , Identified target (Brother) Hallucinations: Auditory (Denies), Visual (Denies) Consciousness: Alert Orientation: Person, Place, Date, Situation Memory: Grossly Intact Estimate Intellectual Function: Average Attention/Concentration & Cogn: Grossly Intact Insight: Good Judgement: Poor Result Diagram: 11/11/16192411/11/161924 Mental Health Plan The patient is a 61-year-old male with a history of mood and anxiety disorder, polysubstance use and opiate dependence, and antisocial personality disorder with multiple chronic medical issues. The patient has been detained due to his threats to harm himself and others and has extremely limited coping skills. The patient has not been taking his medications as prescribed and has only been taking some of his medical medications, primarily his opiates, benzodiazepines, and some of his diabetic medications. Patient continues to agree taking duloxetine 30mg HS, indifference to increasing back to previous dose 60mg, no noted side effects. Anxiety decreased with safe environment. Diazepam scheduled early in the morning works well, though he is requesting more. [place] AXIS I: 1. Mood disorder, unspecified. 2. Anxiety disorder, unspecified. 3. Polysubstance use with a history of opiate dependence, marijuana use disorder. AXIS II: Antisocial personality disorder. AXIS III: See past medical history. Uncontrolled diabetes type II, A1c 11.2 AXIS IV: 1. Chronic pain. 2. Poor coping skills. 3. Social isolation. 4. Over use of opiate pain medication and benzodiazepines. AXIS V: GAF of 35. Treatments 1. The patient is admitted to the inpatient unit and will be provided a safe and secure environment. 2. The patient is denying current active suicidality and is not in need of a one-to-one at this time. 3. The patient is encouraged to participate with group and milieu activities. 4. The patient will be seen by the treatment team on a daily basis to assess symptoms, side effects and response to treatment. 5. The patient will be switched to diazepam 5mg po tid. 6. Duloxetine 30 mg p.o. daily will be continued. 7. Continue current Lantus, high sliding scale, and metformin. 8. Scheduled Percocet 5-325mg to 6am, 11am, 4pm, and 9pm 9. Schedule Valium 5 mg 6 AM, 11 AM, 9 PM since patient is most anxious in the morning. 10. Patient would likely benefit from CBT, went through sample problem on worksheet and patient encouraged to fill out form. 11. Social work to work with patient to contact [facility] to help find a home 12. Follow-up with brother and mother with regards to patient's restraining orders and belongings 13. Encourage patient to request a continuance as estimated length of stay > 7days. Attending Statement The patient was seen and examined together with Dr. Araujo on 11/17/16 and I have added additional information to the note above. Osito Araujo DO Nov 17, 2016 10:45 Rizwan Garcia MD Nov 19, 2016 00:30
[2016-11-17 12:26] VITALS: BP 118/77; PULSE 84; RESP 15
[2016-11-18] MEDS: oxyCODONE-Acetamin 5-325 mg Tablet PO SCH ×4 (05:58→21:30)
[2016-11-18] MEDS: DULoxetine 30 mg DR Capsule PO SCH (07:36)
[2016-11-18] MEDS: Insulin GLARgine 100 Unit/mL Syringe SUBQ SCH ×2 (07:39→21:22)
[2016-11-18] MEDS: Insulin LISPRO 300 Unit/3 mL Inj SUBQ SCH ×4 (07:43→21:23)
[2016-11-18 15:05] VITALS: BP 154/78; PULSE 92; RESP 16
--- NOTE | 2016-11-18 16:45 | PCM.PNPSY ---
Subjective Date of Service Nov 18, 2016 Subjective Overnight, patient was cooperative, blood sugar lows in the 70's as he reportedly had minimal dinner. Otherwise, he took zolpidem, trazodone, Benadryl , and Vistaril in addition to oxycodone 5-325mg to help with sleep. He has recently learned that Vistaril can potentiate opioids, thus requests for Vistaril with every dose of oxycodone 5-325mg. Today, patient expresses continued anxiety, helplessness, hopelessness, and suicidal/homicidal ideation. This has been exacerbate after family meeting today, where he refused to moved to [facility] with his mother. He accused her of cutting off his inheritance and controlling his life, likewise with his brother. He ruminates over his finances, stressed about homelessness. Several hours later he denied suicidal ideation and reported that he had reconsidered his options and would be going to [facility]. Sleep:5.5h Appetite: good, he wants more food Suicidal and homicidal ideation: chronic Auditory hallucinations: denies Visual hallucinations:denies Other Psychotic Symptoms:denies Anxiety:01/31 Depression:01/31 Current Medications Current Medications Diazepam 5 mg 06,11,21 PO Last administered on 11/18/16t 11:16; Admin Dose 5 MG ; Start 11/16/16 at 21:00 Mental Status Exam Vital Signs Vital Signs Date Time Temp Pulse Resp B/P Pulse Ox O2 Delivery O2 Flow Rate FiO2 11/18/16 15:05 36.2 92 16 154/78 Appearance: Unkept Attitude: Cooperative Behavior: Tearful Affect: Well Modulated/Appropriate Mood: Dysthymic, Anxious Thought Process/Associations: Logical/Sequential, Goal Directed Speech Production: Normal Speech Rate: Normal Speech Articulation: Normal Thought Content: Perseveration Danger to Self/Suicidal Ideati: Passive (chronic) Danger to Others: Thoughts/Plans of Harming Others (Not spontaneously reported) , Identified target (Brother) Hallucinations: Auditory (Denies), Visual (Denies) Consciousness: Alert Orientation: Person, Place, Date, Situation Memory: Grossly Intact Estimate Intellectual Function: Average Attention/Concentration & Cogn: Grossly Intact Insight: Good Judgement: Poor Mental Health Plan The patient is a 61-year-old male with a history of mood and anxiety disorder, polysubstance use and opiate dependence, and antisocial personality disorder with multiple chronic medical issues. The patient has been detained due to his threats to harm himself and others and has extremely limited coping skills. The patient has not been taking his medications as prescribed and has only been taking some of his medical medications, primarily his opiates, benzodiazepines, and some of his diabetic medications. Anxiety and depression seems to stem from financial difficulty, bitter about mother and brother unwilling to allocate his inheritance. This is the source of his depression, anxiety, and suicidal plus homicidal ideation. Patient was on duloxetine 60mg at home, he agrees to increase duloxetine 60mg HS. [place] AXIS I: 1. Mood disorder, unspecified. 2. Anxiety disorder, unspecified. 3. Polysubstance use with a history of opiate dependence, marijuana use disorder. AXIS II: Antisocial personality disorder. AXIS III: See past medical history. Uncontrolled diabetes type II, A1c 11.2 AXIS IV: 1. Chronic pain. 2. Poor coping skills. 3. Social isolation. 4. Over use of opiate pain medication and benzodiazepines. AXIS V: GAF of 30-35. Treatments 1. The patient is admitted to the inpatient unit and will be provided a safe and secure environment. 2. The patient is denying current active suicidality and is not in need of a one-to-one at this time. 3. The patient is encouraged to participate with group and milieu activities. 4. The patient will be seen by the treatment team on a daily basis to assess symptoms, side effects and response to treatment. 5. The patient will be switched to diazepam 5mg po tid. 6. Duloxetine 60 mg p.o. daily. increased on 11/18/2016 7. Continue current Lantus, high sliding scale, and metformin. 8. Scheduled Percocet 5-325mg to 6am, 11am, 4pm, and 9pm 9. Schedule Valium 5 mg 6 AM, 11 AM, 9 PM since patient is most anxious in the morning. 10. Patient would likely benefit from CBT, went through sample problem on worksheet and patient encouraged to fill out form. 11. Social work to work with patient to contact [facility] to find a home 12. Follow-up with brother and mother with regards to patient's restraining orders and belongings 13. Encourage patient to request a continuance as estimated length of stay > 7days. Attending Statement The patient was seen and examined together with Dr. Araujo on 11/18/16 and I have added additional information to the note above. Osito Araujo DO Nov 18, 2016 16:45 Rizwan Garcia MD Nov 19, 2016 00:35
[2016-11-19] MEDS: oxyCODONE-Acetamin 5-325 mg Tablet PO SCH ×4 (06:36→21:18)
[2016-11-19] MEDS: Insulin LISPRO 300 Unit/3 mL Inj SUBQ SCH ×4 (08:00→21:22)
[2016-11-19] MEDS: DULoxetine 30 mg DR Capsule PO SCH (08:08)
[2016-11-19] MEDS: Insulin GLARgine 100 Unit/mL Syringe SUBQ SCH ×2 (08:09→20:30)
--- NOTE | 2016-11-19 13:12 | PCM.PNPSY ---
Subjective Date of Service Nov 19, 2016 Subjective I spent 30 minutes both reviewing treatment plan with our clinical team, interviewing the patient and providing supportive/educational psychotherapy. I spent more than 50% of the time counseling the patient. I reviewed the treatment plan with the him and discussed options available including the potential risks, benefits and side effects. Thaddeus reports a slight improvement in mood stability. Staff reports that he has been isolating and participating minimally in one-to-one unit and group activities. He slept 8 hours and denies psychotic symptoms review. He states he continues to feel somewhat hopeless and helpless to affect change in his life. As a result he feels overwhelmed and unable to manage. He denies medication side effects. He was able to identify his medications and what they were used to treat. Current Medications Current Medications Duloxetine HCl 60 mg DAILY PO Last administered on 11/19/16 08:08; Admin Dose 60 MG; Start 11/19/16 at 08:30 Insulin Glargine 85 unit BID SUBQ Last administered on 11/19/16 08:09; Admin Dose 85 UNIT; Start 11/18/16 at 20:30 Mental Status Exam Appearance: Unkept Attitude: Cooperative Behavior: No unusual behavior, Tearful Affect: Well Modulated/Appropriate Mood: Dysthymic, Anxious Thought Process/Associations: Logical/Sequential, Goal Directed Speech Production: Normal Speech Rate: Normal Speech Articulation: Normal Thought Content: Perseveration Danger to Self/Suicidal Ideati: Passive (chronic) Danger to Others: Thoughts/Plans of Harming Others (Not spontaneously reported) , Identified target (Brother) Consciousness: Alert Orientation: Person, Place, Date, Situation Memory: Grossly Intact Estimate Intellectual Function: Average Attention/Concentration & Cogn: Grossly Intact Insight: Good Judgement: Poor Mental Health Plan The patient is a 61-year-old male with a history of mood and anxiety disorder, polysubstance use and opiate dependence, and antisocial personality disorder with multiple chronic medical issues. The patient has been detained due to his threats to harm himself and others and has extremely limited coping skills. The patient has not been taking his medications as prescribed and has only been taking some of his medical medications, primarily his opiates, benzodiazepines, and some of his diabetic medications. Anxiety and depression seems to stem from financial difficulty, bitter about mother and brother unwilling to allocate his inheritance. This is the source of his depression, anxiety, and suicidal plus homicidal ideation. We discussed safety plan and the treatment plan today. Thaddeus is resigned to moving to [place] with family. This seems to be a significant source of previous tension. [place] AXIS I: 1. Mood disorder, unspecified. 2. Anxiety disorder, unspecified. 3. Polysubstance use with a history of opiate dependence, marijuana use disorder. AXIS II: Antisocial personality disorder. AXIS III: See past medical history. Uncontrolled diabetes type II, A1c 11.2 AXIS IV: 1. Chronic pain. 2. Poor coping skills. 3. Social isolation. 4. Over use of opiate pain medication and benzodiazepines. AXIS V: GAF of 40. Treatments 1. The patient is admitted to the inpatient unit and will be provided a safe and secure environment. 2. The patient is denying current active suicidality and is not in need of a one-to-one at this time. 3. The patient is encouraged to participate with group and milieu activities. 4. The patient will be seen by the treatment team on a daily basis to assess symptoms, side effects and response to treatment. 5. The patient will be switched to diazepam 5mg po tid. 6. Duloxetine 60 mg p.o. daily. increased on 11/18/2016 7. Continue current Lantus, high sliding scale, and metformin. 8. Scheduled Percocet 5-325mg to 6am, 11am, 4pm, and 9pm 9. Schedule Valium 5 mg 6 AM, 11 AM, 9 PM since patient is most anxious in the morning. 10. Patient would likely benefit from CBT, went through sample problem on worksheet and patient encouraged to fill out form. 11. Social work to work with patient to contact [facility] to find a home 12. Follow-up with brother and mother with regards to patient's restraining orders and belongings 13. Encourage patient to request a continuance as estimated length of stay > 7days. Leroy Cleveland MD Nov 19, 2016 13:12
[2016-11-19 15:26] VITALS: BP 111/64; PULSE 77; RESP 16
[2016-11-20] MEDS: oxyCODONE-Acetamin 5-325 mg Tablet PO SCH ×4 (06:52→20:53)
[2016-11-20] MEDS: DULoxetine 30 mg DR Capsule PO SCH (07:53)
[2016-11-20] MEDS: Insulin GLARgine 100 Unit/mL Syringe SUBQ SCH ×2 (07:54→20:30)
[2016-11-20] MEDS: Insulin LISPRO 300 Unit/3 mL Inj SUBQ SCH ×4 (07:56→22:09)
--- NOTE | 2016-11-20 13:45 | PCM.PNPSY ---
Subjective Date of Service Nov 20, 2016 Subjective I spent 30 minutes both reviewing treatment plan with our clinical team, interviewing the patient and providing supportive/educational psychotherapy. I spent less than 50% of the time counseling the patient. I reviewed the treatment plan with the him and discussed options available including the potential risks, benefits and side effects. Thaddeus reports good mood stability but irritability and grief and loss when he imagines having to move all of his stuff from [place] to [place].. Staff reports that he has been isolating and participating minimally in one-to- one unit and group activities. He slept 7 hours and denies psychotic symptoms review. He states he continues to feel somewhat helpless to affect change in his life. As a result he feels overwhelmed and unable to manage. He denies medication side effects. Current Medications Current Medications Duloxetine HCl 60 mg DAILY PO Last administered on 11/20/16 07:53; Admin Dose 60 MG; Start 11/19/16 at 08:30 Insulin Glargine 85 unit BID SUBQ Last administered on 11/20/16 07:54; Admin Dose 85 UNIT; Start 11/18/16 at 20:30 Mental Status Exam Appearance: Unkept Attitude: Cooperative Behavior: No unusual behavior, Tearful Affect: Well Modulated/Appropriate Mood: Dysthymic, Anxious Thought Process/Associations: Logical/Sequential, Goal Directed Speech Production: Normal Speech Rate: Normal Speech Articulation: Normal Thought Content: Perseveration Danger to Self/Suicidal Ideati: Passive (chronic) Danger to Others: Thoughts/Plans of Harming Others (Not spontaneously reported) , Identified target (Brother) Consciousness: Alert Orientation: Person, Place, Date, Situation Memory: Grossly Intact Estimate Intellectual Function: Average Attention/Concentration & Cogn: Grossly Intact Insight: Good Judgement: Limited Mental Health Plan The patient is a 61-year-old male with a history of mood and anxiety disorder, polysubstance use and opiate dependence, and antisocial personality disorder with multiple chronic medical issues. The patient has been detained due to his threats to harm himself and others and has extremely limited coping skills. The patient has not been taking his medications as prescribed and has only been taking some of his medical medications, primarily his opiates, benzodiazepines, and some of his diabetic medications. Anxiety and depression seems to stem from financial difficulty, bitter about mother and brother unwilling to allocate his inheritance. This is the source of his depression, anxiety, and suicidal plus homicidal ideation. We discussed safety plan and the treatment plan today. Thaddeus is resigned to moving to [place] with family. This seems to be a significant source of previous tension. [place] AXIS I: 1. Mood disorder, unspecified. 2. Anxiety disorder, unspecified. 3. Polysubstance use with a history of opiate dependence, marijuana use disorder. AXIS II: Antisocial personality disorder. AXIS III: See past medical history. Uncontrolled diabetes type II, A1c 11.2 AXIS IV: 1. Chronic pain. 2. Poor coping skills. 3. Social isolation. 4. Over use of opiate pain medication and benzodiazepines. AXIS V: GAF of 40. Treatments 1. The patient is admitted to the inpatient unit and will be provided a safe and secure environment. 2. The patient is denying current active suicidality and is not in need of a one-to-one at this time. 3. The patient is encouraged to participate with group and milieu activities. 4. The patient will be seen by the treatment team on a daily basis to assess symptoms, side effects and response to treatment. 5. The patient will be switched to diazepam 5mg po tid. 6. Duloxetine 60 mg p.o. daily. increased on 11/18/2016 7. Continue current Lantus, high sliding scale, and metformin. 8. Scheduled Percocet 5-325mg to 6am, 11am, 4pm, and 9pm 9. Add additional Valium 5 mg to schedule 6 AM, 11 AM, 4 pm and 9 PM s 10. Patient would likely benefit from CBT, went through sample problem on worksheet and patient encouraged to fill out form. 11. Social work to work with patient to contact [facility] Community [facility] to find a home 12. Follow-up with brother and mother with regards to patient's restraining orders and belongings 13. Encourage patient to request a continuance as estimated length of stay > 7days. Leroy Cleveland MD Nov 20, 2016 13:45
[2016-11-21] MEDS: oxyCODONE-Acetamin 5-325 mg Tablet PO SCH ×4 (05:19→20:57)
[2016-11-21] MEDS: DULoxetine 30 mg DR Capsule PO SCH (08:11)
[2016-11-21] MEDS: Insulin GLARgine 100 Unit/mL Syringe SUBQ SCH ×2 (08:26→20:30)
[2016-11-21] MEDS: Insulin LISPRO 300 Unit/3 mL Inj SUBQ SCH ×4 (08:27→20:58)
--- NOTE | 2016-11-21 11:19 | PCM.PNPSY ---
Subjective Date of Service Nov 21, 2016 Subjective I spent 30 minutes both reviewing treatment plan with our clinical team, interviewing the patient and providing supportive/educational psychotherapy. I spent less than 50% of the time counseling the patient. I reviewed the treatment plan with the him and discussed options available including the potential risks, benefits and side effects. Thaddeus reports a significant increase in irritability and grief/loss when he imagines having to move all of his stuff from [place] to [place].. Staff reports that he has been isolating and participating minimally in one-to- one unit and group activities. He slept 7 hours and denies psychotic symptoms review. He states he continues to feel somewhat helpless to affect change in his life. As a result he feels overwhelmed and unable to manage. He denies SI and we worked on a safety plan as he mobilizes his efforts to move to [place] w brother and mother. He denies medication side effects. Current Medications Current Medications Diazepam 5 mg 06,11,16,21 PO Last administered on 11/21/16t 10:51; Admin Dose 5 MG; Start 11/20/16 at 16:00 Mental Status Exam Appearance: Unkept Attitude: Cooperative Behavior: No unusual behavior, Tearful Affect: Well Modulated/Appropriate Mood: Dysthymic, Anxious Thought Process/Associations: Logical/Sequential, Goal Directed Speech Production: Normal Speech Rate: Normal Speech Articulation: Normal Thought Content: Perseveration Danger to Self/Suicidal Ideati: Passive (chronic) Danger to Others: Thoughts/Plans of Harming Others (Not spontaneously reported) , Identified target (Brother) Consciousness: Alert Orientation: Person, Place, Date, Situation Memory: Grossly Intact Estimate Intellectual Function: Average Attention/Concentration & Cogn: Grossly Intact Insight: Good Judgement: Limited Mental Health Plan The patient is a 61-year-old male with a history of mood and anxiety disorder, polysubstance use and opiate dependence, and antisocial personality disorder with multiple chronic medical issues. The patient has been detained due to his threats to harm himself and others and has extremely limited coping skills. The patient has not been taking his medications as prescribed and has only been taking some of his medical medications, primarily his opiates, benzodiazepines, and some of his diabetic medications. Anxiety and depression seems to stem from financial difficulty, bitter about mother and brother unwilling to allocate his inheritance. This is the source of his depression, anxiety, and suicidal plus homicidal ideation. We discussed safety plan and the treatment plan today. Thaddeus is resigned to moving to [place] with family. This is a significant source of previous tension. [place] AXIS I: 1. Mood disorder, unspecified. 2. Anxiety disorder, unspecified. 3. Polysubstance use with a history of opiate dependence, marijuana use disorder. AXIS II: Antisocial personality disorder. AXIS III: See past medical history. Uncontrolled diabetes type II, A1c 11.2 AXIS IV: 1. Chronic pain. 2. Poor coping skills. 3. Social isolation. 4. Over use of opiate pain medication and benzodiazepines. AXIS V: GAF of 40. Treatments 1. The patient is admitted to the inpatient unit and will be provided a safe and secure environment. 2. The patient is denying current active suicidality and is not in need of a one-to-one at this time. 3. The patient is encouraged to participate with group and milieu activities. 4. The patient will be seen by the treatment team on a daily basis to assess symptoms, side effects and response to treatment. 5. Duloxetine 60 mg p.o. daily. increased on 11/18/2016 7. Continue current Lantus, high sliding scale, and metformin. 8. Scheduled Percocet 5-325mg to 6am, 11am, 4pm, and 9pm 9. Valium 5 mg to schedule 6 AM, 11 AM, 4 pm and 9 PM s 10. Patient would likely benefit from CBT, went through sample problem on worksheet and patient encouraged to fill out form. 11. Social work to work with patient to contact [facility] Community [facility] to find a home 12. Follow-up with brother and mother with regards to patient's restraining orders and belongings 13. Encourage patient to request a continuance as estimated length of stay > 7days. Leroy Cleveland MD Nov 21, 2016 11:19 Leroy Cleveland MD Nov 21, 2016 11:19
[2016-11-22] MEDS: oxyCODONE-Acetamin 5-325 mg Tablet PO SCH ×4 (06:07→20:48)
[2016-11-22] MEDS: Insulin LISPRO 300 Unit/3 mL Inj SUBQ SCH ×4 (08:00→20:03)
[2016-11-22] MEDS: DULoxetine 30 mg DR Capsule PO SCH (08:07)
[2016-11-22] MEDS: Insulin GLARgine 100 Unit/mL Syringe SUBQ SCH ×2 (08:08→20:08)
--- NOTE | 2016-11-22 14:16 | PCM.PNPSY ---
Subjective Date of Service Nov 22, 2016 Subjective I spent 30 minutes both reviewing treatment plan with our clinical team, interviewing the patient and providing supportive/educational psychotherapy. I spent more than 50% of the time counseling the patient. I reviewed the treatment plan with the him and discussed options available including the potential risks, benefits and side effects. Thaddeus reports continued grief/loss when he imagines having to move all of his stuff from [place] to [place]. However today he denies suicidal ideation and states that he is ready to move forward to the treatment plan that involves moving to [place]. Staff reports that he has been participating minimally in one-to-one unit and group activities. He slept 7 hours and denies psychotic symptoms review. He states he continues to feel somewhat helpless to affect change in his life. We worked on a safety plan as he mobilizes his efforts to move to [place] w brother and mother. He denies medication side effects. Current Medications Current Medications Diazepam 5 mg 06,11,16,21 PO Last administered on 11/22/16 11:01; Admin Dose 5 MG; Start 11/20/16 at 16:00 Oxycodone/ Acetaminophen 1 tab 06,11,16,21 PO Last administered on 11/22/16 11: 01; Admin Dose 1 TAB; Start 11/21/16 at 21:00 Mental Status Exam Appearance: Unkept Attitude: Cooperative Behavior: No unusual behavior Affect: Well Modulated/Appropriate Mood: Dysthymic Thought Process/Associations: Logical/Sequential, Goal Directed Speech Production: Normal Speech Rate: Normal Speech Articulation: Normal Thought Content: Perseveration Danger to Self/Suicidal Ideati: None Danger to Others: None Consciousness: Alert Orientation: Person, Place, Date, Situation Memory: Grossly Intact Estimate Intellectual Function: Average Attention/Concentration & Cogn: Grossly Intact Insight: Good Judgement: Limited Mental Health Plan The patient is a 61-year-old male with a history of mood and anxiety disorder, polysubstance use and opiate dependence, and antisocial personality disorder with multiple chronic medical issues. The patient has been detained due to his threats to harm himself and others and has extremely limited coping skills. The patient has not been taking his medications as prescribed and has only been taking some of his medical medications, primarily his opiates, benzodiazepines, and some of his diabetic medications. Anxiety and depression seems to stem from financial difficulty, bitter about mother and brother unwilling to allocate his inheritance. This is the source of his depression, anxiety, and suicidal plus homicidal ideation. We discussed safety plan and the treatment plan today. Thaddeus is resigned to moving to [place] with family. This is a significant source of previous tension. I plan to discharge him to his brother on morning. [place] AXIS I: 1. Mood disorder, unspecified. 2. Anxiety disorder, unspecified. 3. Polysubstance use with a history of opiate dependence, marijuana use disorder. AXIS II: Antisocial personality disorder. AXIS III: See past medical history. Uncontrolled diabetes type II, A1c 11.2 AXIS IV: 1. Chronic pain. 2. Poor coping skills. 3. Social isolation. 4. Over use of opiate pain medication and benzodiazepines. AXIS V: GAF of 40. Treatments 1. The patient is admitted to the inpatient unit and will be provided a safe and secure environment. 2. The patient is denying current active suicidality and is not in need of a one-to-one at this time. 3. The patient is encouraged to participate with group and milieu activities. 4. The patient will be seen by the treatment team on a daily basis to assess symptoms, side effects and response to treatment. 5. Duloxetine 60 mg p.o. daily. increased on 11/18/2016 7. Continue current Lantus, high sliding scale, and metformin. 8. Scheduled Percocet 5-325mg to 6am, 11am, 4pm, and 9pm 9. Valium 5 mg to schedule 6 AM, 11 AM, 4 pm and 9 PM s 10. Patient would likely benefit from CBT, went through sample problem on worksheet and patient encouraged to fill out form. 11. Discharge to brothers care and mother with regards to move to [place] on Leroy Cleveland MD Nov 22, 2016 14:16
[2016-11-23] MEDS: oxyCODONE-Acetamin 5-325 mg Tablet PO SCH ×4 (05:44→21:07)
[2016-11-23] MEDS: Insulin LISPRO 300 Unit/3 mL Inj SUBQ SCH ×4 (08:00→21:35)
[2016-11-23] MEDS: Insulin GLARgine 100 Unit/mL Syringe SUBQ SCH ×2 (09:05→20:30)
[2016-11-23] MEDS: DULoxetine 30 mg DR Capsule PO SCH (09:05)
--- NOTE | 2016-11-23 12:22 | PCM.PNPSY ---
Subjective Date of Service Nov 23, 2016 Subjective I spent 30 minutes both reviewing treatment plan with our clinical team, interviewing the patient and providing supportive/educational psychotherapy. I spent more than 50% of the time counseling the patient. I reviewed the treatment plan with the him and discussed options available including the potential risks, benefits and side effects. We discussed a safety plan and different coping strategies he could use. Thaddeus reports continued grief/loss when he imagines having to move all of his stuff from [place] to [place]. He denies suicidal ideation and states that he is ready to move forward to the treatment plan that involves moving to [place]. Staff reports that he has been participating minimally in one-to- one unit and group activities. He slept 9 hours and denies psychotic symptoms review. He states he continues to feel somewhat helpless to affect change in his life. We worked on a safety plan as he mobilizes his efforts to move to [place] w brother and mother. He denies medication side effects. Current Medications Current Medications Oxycodone/ Acetaminophen 1 tab 06,11,16,21 PO Last administered on 11/23/16t 11: 58; Admin Dose 1 TAB; Start 11/21/16 at 21:00 Mental Status Exam Appearance: Unkept Attitude: Cooperative Behavior: No unusual behavior Affect: Well Modulated/Appropriate Mood: Dysthymic Thought Process/Associations: Logical/Sequential, Goal Directed Speech Production: Normal Speech Rate: Normal Speech Articulation: Normal Thought Content: Perseveration Danger to Self/Suicidal Ideati: None Danger to Others: None Consciousness: Alert Orientation: Person, Place, Date, Situation Memory: Grossly Intact Estimate Intellectual Function: Average Attention/Concentration & Cogn: Grossly Intact Insight: Good Judgement: Limited Mental Health Plan The patient is a 61-year-old male with a history of mood and anxiety disorder, polysubstance use and opiate dependence, and antisocial personality disorder with multiple chronic medical issues. The patient has been detained due to his threats to harm himself and others and has extremely limited coping skills. The patient has not been taking his medications as prescribed and has only been taking some of his medical medications, primarily his opiates, benzodiazepines, and some of his diabetic medications. Anxiety and depression seems to stem from financial difficulty, bitter about mother and brother unwilling to allocate his inheritance. This is the source of his depression, anxiety, and suicidal plus homicidal ideation. We discussed safety plan and the treatment plan today. Thaddeus is resigned to moving to [place] with family. This is a significant source of previous tension. I plan to discharge him to his brother on morning. He no longer feels suicidal and is ready for a trial as an outpatient. We discussed discharge early in the a.m. [place] AXIS I: 1. Mood disorder, unspecified. 2. Anxiety disorder, unspecified. 3. Polysubstance use with a history of opiate dependence, marijuana use disorder. AXIS II: Antisocial personality disorder. AXIS III: See past medical history. Uncontrolled diabetes type II, A1c 11.2 AXIS IV: 1. Chronic pain. 2. Poor coping skills. 3. Social isolation. 4. Over use of opiate pain medication and benzodiazepines. AXIS V: GAF of 45. Treatments 1. The patient is admitted to the inpatient unit and will be provided a safe and secure environment. 2. The patient is denying current active suicidality and is not in need of a one-to-one at this time. 3. The patient is encouraged to participate with group and milieu activities. 4. The patient will be seen by the treatment team on a daily basis to assess symptoms, side effects and response to treatment. 5. Duloxetine 60 mg p.o. daily. increased on 11/18/2016 7. Continue current Lantus, high sliding scale, and metformin. 8. Scheduled Percocet 5-325mg to 6am, 11am, 4pm, and 9pm 9. Valium 5 mg to schedule 6 AM, 11 AM, 4 pm and 9 PM s 10. Patient would likely benefit from CBT, went through sample problem on worksheet and patient encouraged to fill out form. 11. Discharge to brothers care and mother with regards to move to [place] on Leroy Cleveland MD Nov 23, 2016 12:22
[2016-11-23 16:23] VITALS: BP 120/68; PULSE 81; RESP 16
[2016-11-24] MEDS: oxyCODONE-Acetamin 5-325 mg Tablet PO SCH ×2 (05:56→10:58)
[2016-11-24] MEDS: DULoxetine 30 mg DR Capsule PO SCH (08:06)
[2016-11-24] MEDS: Insulin GLARgine 100 Unit/mL Syringe SUBQ SCH (08:08)
[2016-11-24] MEDS: Insulin LISPRO 300 Unit/3 mL Inj SUBQ SCH (08:21)
[2016-11-24] MEDS ORDERED: DIAZ5TAB PO (09:48)
[2016-11-24] MEDS ORDERED: PREG50CA PO (09:48)
[2016-11-24] MEDS ORDERED: METF1000 PO (09:48)
[2016-11-24] MEDS ORDERED: DULO60CA61 PO (09:48)
[2016-11-24] MEDS ORDERED: TAMS0.4C98 PO (09:48)
[2016-11-24] MEDS ORDERED: OXYC-407 PO (09:48)
[2016-11-24] MEDS ORDERED: INSU100V7 SUBQ (09:48)
[2016-11-24] MEDS ORDERED: ALBU8.5H2 INHALATION (09:48)
--- NOTE | 2016-11-24 09:51 | PCM.DIMED ---
Discharge Instructions Date of Service Nov 24, 2016 Dates of Hospitalization Nov 14, 2016 at 18:26 Discharge Diagnosis Discharge Diagnosis AXIS I: 1. Mood disorder, unspecified. 2. Anxiety disorder, unspecified. 3. Polysubstance use with a history of opiate dependence, marijuana use disorder. AXIS II: Antisocial personality disorder. AXIS III: See past medical history. Uncontrolled diabetes type II, A1c 11.2 AXIS IV: 1. Chronic pain. 2. Poor coping skills. 3. Social isolation. 4. Over use of opiate pain medication and benzodiazepines. AXIS V: GAF of 45. Medication Instructions Additional med instructions I Strongly encouraged patient to follow up with outpatient care: 1-Recommended patient takes medication as prescribed and not alter this unless under the direct care of a provider. 2-Recommend client refrain from recreational drugs and alcohol while taking psychiatric medications. 3-Recommend patient attempt to find a therapist or group to deal with impulse control and interpersonal relationship conflicts Diet Discharge Diet: No restrictions Activity Discharge Activity: No restrictions Call your provider Call your provider for: Fever or Chills Patient Instructions Patient Instructions Patient to be discharged to his [facility] and will move to [place]. Client will follow-up with [facility] in [place] within the next 2 weeks for establishment of therapy and psychiatric care. Follow-up with PCP in: 2 weeks Leroy Cleveland MD Nov 24, 2016 09:51
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
== END 2016-11-24 11:15 | disposition home or self-care (01) | DRG 885 ==
LOC: EDBD 10:18 → SED 10:18 → MHC 11-14 18:26
PROVIDERS: ADMIT Psychiatry & Neurology Psychiatry; ATTEND Psychiatry & Neurology Psychiatry
DX: F39 Unspecified mood [affective] disorder (principal); R45.851 Suicidal ideations; E11.65 Type 2 diabetes mellitus with hyperglycemia; F11.20 Opioid dependence, uncomplicated; F41.9 Anxiety disorder, unspecified; Z79.4 Long term (current) use of insulin; I10 Essential (primary) hypertension; Z89.511 Acquired absence of right leg below knee; F17.210 Nicotine dependence, cigarettes, uncomplicated; G89.29 Other chronic pain; F12.90 Cannabis use, unspecified, uncomplicated; F60.2 Antisocial personality disorder; F19.10 Other psychoactive substance abuse, uncomplicated; R45.850 Homicidal ideations